=== PATIENT | male | born 1950 | race Caucasian/White ===

== ENCOUNTER → 2020-10-18 14:47 | Outpatient (CLI) | payer MEDICARE, SELFPAY ==
[2020-10-18 14:50] LABS: MANUAL DIFFERENTIAL MANUAL DIFFERENTIAL (MANUAL DIFF)
[2020-10-18 15:17] LABS: Basophils # 0.1 K/mm3 (0-0.2); Basophils % 1.4 % (0.1-2.0); Eosinophils # 0.3 K/mm3 (0.0-0.4); Eosinophils % 3.6 % (0.1-12.0); Hematocrit 46.8 % (42.0-52.0); Hemoglobin 15.5 g/dL (14.1-18.0); Lymphocytes % 23.1 % (10-50); Mean Corpuscular HGB Conc 33.1 g/dL (31.8-35.4); Mean Corpuscular Hemoglobin 34.1 pg (27.0-31.2); Mean Corpuscular Volume 102.9 fl (80-94); Mean Platelet Volume 7.6 fl (7.4-10.4); Monocytes # 0.5 K/mm3 (0.1-1.0); Monocytes % 5.8 % (1.7-9.3); Neutrophils # 5.8 K/mm3 (1.8-7.8); Neutrophils % 66.1 % (37.0-80.0); Platelet Count 309 K/mm3 (142-424); Red Blood Count 4.55 M/mm3 (4.60-6.20); Red Cell Distribution Width 14.3 % (11.5-17.5); White Blood Count 8.8 K/mm3 (4.8-10.8)
[2020-10-18 16:01] LABS: Alanine Aminotransferase 16 U/L (12-78); Albumin Level 4.6 g/dl (3.5-5.0); Albumin/Globulin Ratio 1.5 (1.1-1.8); Alkaline Phosphatase 72 U/L (38-126); Anion Gap 12.7 mEq/L (5-15); Aspartate Amino Transferase 30 U/L (17-59); Bilirubin,Total 0.5 mg/dl (0.2-1.3); Blood Urea Nitrogen 28 mg/dl (9-20); Calcium 9.6 mg/dl (8.4-10.2); Carbon Dioxide 30 mmol/L (22.0-30.0); Chloride 99 mmol/L (98-107); Estimated Glomerular Filt Rate 50 ml/min (>60); GFR (African American) 61 ML/MIN (>60); Glucose 169 mg/dl (74-100); Potassium 3.7 mmoL/L (3.5-5.1); Sodium 138 mmol/L (136-145); Total Protein,Serum 7.6 g/dl (6.3-8.2)
[2020-10-18 16:20] LABS: Eosinophils % 7 % (0-3); Lymphocytes % 17 % (10-50); Macrocytosis 1+; Monocytes % 4 % (2-9); Neutrophils % 72 % (42-76); Platelet Estimate Normal; RBC Morphology Normal; Total Cells Counted 100
[2020-10-18 16:31] LABS: Thyroid Stimulating Hormone 2.12 uIU/mL (0.465-4.68)
[2020-10-20 13:25] LABS: Thyroid Peroxidase Antibodies <9 IU/mL (0-34)
[2020-10-21 10:04] LABS: Thyroid Stimulating Immunoglob <0.10 IU/L (0.00-0.55)
== END ==
PROVIDERS: Visit Provider Otolaryngology
DX: R42 Dizziness and giddiness (principal); E03.9 Hypothyroidism, unspecified; Z79.899 Other long term (current) drug therapy
CPT/HCPCS: 36415; 80053; 84443; 84445; 85007; 85014; 85018; 85048; 85049; 86376

== ENCOUNTER → 2020-10-27 13:10 | Outpatient (CLI) | payer MEDICARE, BC, SELFPAY ==
--- NOTE | 2020-10-27 13:11 | MR_ITS ---
PROCEDURE: MR ANGIO NECK WO CON CLINICAL INDICATION: eval of circulation DIZZINESS, VERTIGO, SYMPTOMS FOR YEARS COMPARISON: No exams were available for comparison TECHNIQUE: 3D oxdb-ah-idviky images are obtained without contrast. FINDINGS: No significant stenotic lesions are evident. No evidence of dissection. The right vertebral artery is hypoplastic with dominant left vertebral artery noted. IMPRESSION: Negative MR angio of the neck Dictated by: Trenton Rose MD 10/28/2020 14:50 Trenton Rose MD in [place] 10/28/2020 14:50
--- NOTE | 2020-10-27 13:11 | MR_ITS ---
PROCEDURE: MR HEAD/BRAIN WO CON CLINICAL INDICATION: eval for ORGANIC SEARCH LEAD abnormality DIZZINESS, VERTIGO, SYMPTOMS FOR YEARS COMPARISON: No exams were available for comparison TECHNIQUE: Routine multiplanar multi echo sequences are performed without gadolinium enhancement. FINDINGS: No midline shift or mass effect. No acute intracranial hemorrhage. No evidence of acute infarction. The cerebellopontine angles and cerebellum and brainstem have an unremarkable appearance. There is mild generalized atrophy. There are few T2 white matter hyperintensities which are nonspecific. The pituitary and optic chiasm and corpus callosum and craniocervical junction have an unremarkable appearance. There is mild mucosal thickening of the ethmoid sinuses and sphenoid sinus. There is a partial empty sella as a normal variant. No mastoid effusion. IMPRESSION: No acute intracranial findings. Mild generalized atrophy. Mild paranasal sinus disease Dictated by: Trenton Rose MD 10/28/2020 14:44 Trenton Rose MD in [place] 10/28/2020 14:44
--- NOTE | 2020-10-27 13:11 | MR_ITS ---
PROCEDURE: MR ANGIO HEAD WO CON CLINICAL INDICATION: eval of circulation DIZZINESS,VERTIGO, SYMPTOMS FOR YEARS COMPARISON: No exams were available for comparison TECHNIQUE: 3D gyva-er-nfmpvu images are without contrast with multi slab reformats. FINDINGS: No aneurysm, arteriovenous malformation, or major branch occlusion apparent. There is persistent origin of the right posterior cerebral artery as a normal variant. IMPRESSION: Negative MRA of the brain. Dictated by: Trenton Rose MD 10/28/2020 14:48 Trenton Rose MD in [place] 10/28/2020 14:48
== END ==
PROVIDERS: PCP Nurse Practitioner Family; Visit Provider Specialist
DX: D75.89 Other specified diseases of blood and blood-forming organs (principal); G47.30 Sleep apnea, unspecified; H40.9 Unspecified glaucoma; I10 Essential (primary) hypertension; R42 Dizziness and giddiness; Z86.39 Personal history of other endocrine, nutritional and metabolic disease; Z94.7 Corneal transplant status
CPT/HCPCS: 70544; 70547; 70551

== ENCOUNTER 2020-10-27 14:35 | Outpatient (RCR) | payer MEDICARE, BC, SELFPAY ==
--- NOTE | 2020-10-27 16:19 | [facility]H.PTOPEV ---
PT Outpatient Evaluation Rehab PT Outpatient Evaluation Start: 10/27/20 14:48 Freq: Status: Active Protocol: Document 10/27/20 16:05 PHORNE (Rec: 10/27/20 16:19 PHORNE [id number]) Electronically Signed By Telly Farias, PT 10/27/20 16:05 Outpatient Therapy Subjective History Subjective History Pt is 70 yowm who presents with c/o chronic vertigo for several years, not positional dependent, with episodes lasting at least 15-30 mins at a time. He reports Vertigo was significantly worse over past 2 mos after a severe bout of strep throat caused him to have his worst symptoms ever. He also reports symptoms apear to worsen with significant salty food intake, I never thought that mattered, but now that you mention it, if I eat potato chips my dizziness is much worse. He also reports chronic tinnitus in B ears which is constant and unchanged. He reports family hx of similar symptoms. He reports his vertigo is best in the am and worse in the afternoon or evening. He has hx of glaucoma with multiple B eye surgeries and chronic vision changes. He reports PMH of anxiety, HL, HTN, and sleep apnea. [place]-halpike testing shows no nystagmus at all and minimal baseline dizziness with all positions. Mild increase in symptoms with Dynamic Visual Acuity test, Head Impulse test, and Saccades testing. Chief Complaint Other Prior Functional Limitations None Current Functional Limitations Driving Symptom Description Constant but Variable Level of pain today (0-10) 0 Balance Eval Nystagmus Nystagmus Presence None Oculomotor Gaze Oculomotor Gaze Nml: Vergence Saccades VOR Cancellation Cover/U
== END 2020-10-27 14:40 | disposition home or self-care (01) ==
LOC: PT 14:35
PROVIDERS: PCP Nurse Practitioner Family; Visit Provider Specialist
DX: R42 Dizziness and giddiness (principal)
CPT/HCPCS: 97163; 97530

== ENCOUNTER → 2020-11-04 09:26 | Outpatient (CLI) | payer MEDICARE, BC, SELFPAY ==
[2020-11-04 11:18] LABS: Vitamin B12 400 pg/mL (239-931)
[2020-11-05 17:25] LABS: Homocyst(e)ine 16.4 umol/L (0.0-17.2)
[2020-11-11 19:08] LABS: Methylmalonic Acid 363 nmol/L (0-378)
== END ==
PROVIDERS: Visit Provider Specialist
DX: D75.89 Other specified diseases of blood and blood-forming organs (principal); G47.30 Sleep apnea, unspecified; H40.9 Unspecified glaucoma; I10 Essential (primary) hypertension; R42 Dizziness and giddiness; Z86.39 Personal history of other endocrine, nutritional and metabolic disease; Z94.7 Corneal transplant status
CPT/HCPCS: 36415; 82131; 82607; 82746; 83090

== ENCOUNTER → 2022-06-05 06:22 | Outpatient (CLI) | payer MEDICARE, BC, SELFPAY ==
[2022-06-05 21:25] LABS: Basophils # 0.1 K/mm3 (0-0.2); Basophils % 1.2 % (0.1-2.0); Eosinophils # 0.3 K/mm3 (0.0-0.4); Eosinophils % 3.9 % (0.1-12.0); Hematocrit 44.2 % (42.0-52.0); Hemoglobin 14.1 g/dL (14.1-18.0); Lymphocytes # 1.9 K/mm3 (0.7-4.5); Lymphocytes % 26.6 % (10-50); Mean Corpuscular HGB Conc 31.9 g/dL (31.8-35.4); Mean Corpuscular Hemoglobin 32.9 pg (27.0-31.2); Mean Corpuscular Volume 103.2 fl (80-94); Mean Platelet Volume 9.3 fl (7.4-10.4); Monocytes # 0.6 K/mm3 (0.1-1.0); Neutrophils # 4.3 K/mm3 (1.8-7.8); Neutrophils % 60.2 % (37.0-80.0); Platelet Count 300 K/mm3 (142-424); Red Blood Count 4.29 M/mm3 (4.60-6.20); Red Cell Distribution Width 14.3 % (11.5-17.5); White Blood Count 7.1 K/mm3 (4.8-10.8)
[2022-06-05 21:41] LABS: Alanine Aminotransferase 16 U/L (12-78); Albumin Level 4.1 g/dl (3.5-5.0); Albumin/Globulin Ratio 1.6 (1.1-1.8); Alkaline Phosphatase 67 U/L (38-126); Anion Gap 10.8 mEq/L (5-15); Aspartate Amino Transferase 41 U/L (17-59); Bilirubin,Total 0.3 mg/dl (0.2-1.3); Blood Urea Nitrogen 27 mg/dl (9-20); Calcium 9.4 mg/dl (8.4-10.2); Carbon Dioxide 26 mmol/L (22.0-30.0); Chloride 106 mmol/L (98-107); Chol/HDL Ratio 3.4 (1-3.5); Cholesterol 142 mg/dl (140-200); Estimated Glomerular Filt Rate 60 ml/min (>60); GFR (African American) 72 ML/MIN (>60); Globulin 2.6 g/dL (1.3-3.2); Glucose 104 mg/dl (74-100); HDL Cholesterol 42 mg/dl (40-60); Potassium 3.8 mmoL/L (3.5-5.1); Sodium 139 mmol/L (136-145); Total Protein,Serum 6.7 g/dl (6.3-8.2); Triglycerides 92 mg/dl (30-150); VLDL Cholesterol 18 mg/dL (0-40)
[2022-06-05 21:42] LABS: Microalbumin/Creatinine Ratio 22.1
[2022-06-05 21:49] LABS: Creatinine,Urine Random 73 mg/dL (Not Estab.)
[2022-06-05 22:05] LABS: Hemoglobin A1C 5.9 % (4.0-6.0)
[2022-06-05 22:12] LABS: Thyroid Stimulating Hormone 0.97 uIU/mL (0.465-4.68)
[2022-06-07 09:01] LABS: Direct LDL Cholesterol 78 mg/dL (100-129)
== END ==
PROVIDERS: PCP Family Medicine; Visit Provider Family Medicine
DX: I10 Essential (primary) hypertension (principal); N28.9 Disorder of kidney and ureter, unspecified; E11.9 Type 2 diabetes mellitus without complications; R42 Dizziness and giddiness; Z79.84 Long term (current) use of oral hypoglycemic drugs
CPT/HCPCS: 80053; 80061; 82043; 82570; 83036; 84443; 85025

== ENCOUNTER → 2022-12-03 23:39 | Outpatient (CLI) | payer MEDICARE, BC, SELFPAY ==
[2022-12-03 17:19] LABS: Creatinine,Urine Random 94 mg/dL (Not Estab.)
[2022-12-03 17:23] LABS: Microalbumin/Creatinine Ratio 102.1
== END ==
PROVIDERS: PCP Family Medicine; Visit Provider Family Medicine
DX: E11.9 Type 2 diabetes mellitus without complications (principal); Z79.84 Long term (current) use of oral hypoglycemic drugs
CPT/HCPCS: 82043; 82570

== ENCOUNTER → 2023-06-03 23:13 | Outpatient (CLI) | payer MEDICARE, BC, SELFPAY ==
[2023-06-03 17:04] LABS: Basophils # 0.1 K/mm3 (0-0.2); Basophils % 0.9 % (0.1-2.0); Eosinophils # 0.2 K/mm3 (0.0-0.4); Eosinophils % 2.8 % (0.1-12.0); Hemoglobin 15.5 g/dL (14.1-18.0); Lymphocytes % 26.9 % (10-50); Mean Corpuscular HGB Conc 32.9 g/dL (31.8-35.4); Mean Corpuscular Hemoglobin 32.9 pg (27.0-31.2); Mean Corpuscular Volume 99.9 fl (80-94); Mean Platelet Volume 9.3 fl (7.4-10.4); Monocytes # 0.7 K/mm3 (0.1-1.0); Neutrophils # 4.5 K/mm3 (1.8-7.8); Neutrophils % 60.4 % (37.0-80.0); Platelet Count 275 K/mm3 (142-424); Red Blood Count 4.71 M/mm3 (4.60-6.20); Red Cell Distribution Width 14.1 % (11.5-17.5); White Blood Count 7.4 K/mm3 (4.8-10.8)
[2023-06-03 17:05] LABS: Alanine Aminotransferase 18 U/L (12-78); Albumin Level 4.4 g/dl (3.5-5.0); Albumin/Globulin Ratio 1.4 (1.1-1.8); Alkaline Phosphatase 67 U/L (38-126); Anion Gap 15.8 mEq/L (5-15); Aspartate Amino Transferase 31 U/L (17-59); Bilirubin,Total 0.5 mg/dl (0.2-1.3); Blood Urea Nitrogen 28 mg/dl (9-20); Calcium 9.6 mg/dl (8.4-10.2); Carbon Dioxide 25 mmol/L (22.0-30.0); Chloride 103 mmol/L (98-107); Chol/HDL Ratio 3.5 (1-3.5); Cholesterol 150 mg/dl (140-200); Estimated Glomerular Filt Rate 50 ml/min (>60); GFR (African American) 61 ML/MIN (>60); Globulin 3.2 g/dL (1.3-3.2); Glucose 104 mg/dl (74-100); HDL Cholesterol 43 mg/dl (40-60); Potassium 3.8 mmoL/L (3.5-5.1); Sodium 140 mmol/L (136-145); Total Protein,Serum 7.6 g/dl (6.3-8.2); Triglycerides 131 mg/dl (30-150); VLDL Cholesterol 26 mg/dL (0-40)
[2023-06-03 17:16] LABS: Direct LDL Cholesterol 84.51 mg/dL (100-129)
[2023-06-03 17:26] LABS: Hemoglobin A1C 6.1 % (4.0-6.0)
[2023-06-03 17:34] LABS: Thyroid Stimulating Hormone 1.69 uIU/mL (0.465-4.68)
== END ==
PROVIDERS: PCP Family Medicine; Visit Provider Family Medicine
DX: I10 Essential (primary) hypertension (principal); E03.9 Hypothyroidism, unspecified; E11.9 Type 2 diabetes mellitus without complications; E78.5 Hyperlipidemia, unspecified; Z00.00 Encounter for general adult medical examination without abnormal findings; Z79.84 Long term (current) use of oral hypoglycemic drugs
CPT/HCPCS: 80053; 80061; 83036; 84443; 85025

== ENCOUNTER 2024-02-26 10:20 | Outpatient (CLI) | payer MEDICARE, SELFPAY ==
[2024-02-26 16:36] LABS: Hemoglobin A1C 6.2 % (4.0-6.0)
[2024-02-26 16:40] LABS: Chloride 104 mmol/L (98-107); Sodium 138 mmol/L (136-145)
[2024-02-26 16:41] LABS: Potassium 3.7 mmoL/L (3.5-5.1)
[2024-02-26 16:44] LABS: Anion Gap 12.7 mEq/L (5-15); Blood Urea Nitrogen 33 mg/dl (9-20); Calcium 10.1 mg/dl (8.4-10.2); Carbon Dioxide 25 mmol/L (22.0-30.0); Estimated Glomerular Filt Rate 54 ml/min (>60); GFR (African American) 66 ML/MIN (>60); Glucose 109 mg/dl (74-100)
== END 2024-02-26 23:59 | disposition home or self-care (01) ==
LOC: LAB.DROPOF 02-27 10:21
PROVIDERS: PCP Family Medicine; Visit Provider Family Medicine
DX: E11.9 Type 2 diabetes mellitus without complications (principal); Z79.899 Other long term (current) drug therapy
CPT/HCPCS: 80048; 83036

== ENCOUNTER 2024-12-29 09:02 | Outpatient (CLI) | payer MEDICARE, BC, SELFPAY ==
[2024-12-29 17:37] LABS: Basophils # 0.1 K/mm3 (0-0.2); Eosinophils # 0.1 K/mm3 (0.0-0.4); Eosinophils % 1.9 % (0.1-12.0); Hemoglobin 14.5 g/dL (14.1-18.0); Lymphocytes # 1.6 K/mm3 (0.7-4.5); Lymphocytes % 23.2 % (10-50); Mean Corpuscular Hemoglobin 32.3 pg (27.0-31.2); Mean Platelet Volume 10.3 fl (7.4-10.4); Monocytes # 0.7 K/mm3 (0.1-1.0); Monocytes % 10.2 % (1.7-9.3); Neutrophils # 4.2 K/mm3 (1.8-7.8); Neutrophils % 63.3 % (37.0-80.0); Platelet Count 259 K/mm3 (142-424); Red Blood Count 4.49 M/mm3 (4.60-6.20); Red Cell Distribution Width 13.8 % (11.5-17.5); White Blood Count 6.7 K/mm3 (4.8-10.8)
[2024-12-29 18:10] LABS: Alanine Aminotransferase 16 U/L (12-78); Albumin Level 4.6 g/dl (3.5-5.0); Albumin/Globulin Ratio 1.8 (1.1-1.8); Alkaline Phosphatase 60 U/L (38-126); Anion Gap 12.1 mEq/L (5-15); Aspartate Amino Transferase 26 U/L (17-59); Bilirubin,Total 0.6 mg/dl (0.2-1.3); Blood Urea Nitrogen 29 mg/dl (9-20); Carbon Dioxide 26 mmol/L (22.0-30.0); Chloride 105 mmol/L (98-107); Chol/HDL Ratio 3.3 (1-3.5); Cholesterol 154 mg/dl (140-200); Estimated Glomerular Filt Rate 54 ml/min (>60); GFR (African American) 66 ML/MIN (>60); Globulin 2.6 g/dL (1.3-3.2); Glucose 83 mg/dl (74-100); HDL Cholesterol 46 mg/dl (40-60); Potassium 4.1 mmoL/L (3.5-5.1); Sodium 139 mmol/L (136-145); Total Protein,Serum 7.2 g/dl (6.3-8.2); Triglycerides 68 mg/dl (30-150); VLDL Cholesterol 14 mg/dL (0-40)
[2024-12-29 18:33] LABS: Hemoglobin A1C 5.9 % (4.0-6.0)
[2024-12-29 18:41] LABS: Prostate Specific Ag Screen 0.6 ng/ml (0.0-4.0); Thyroid Stimulating Hormone 1.26 uIU/mL (0.465-4.68)
[2024-12-29 19:55] LABS: HIV Combo NEGATIVE (Negative)
[2024-12-29 20:04] LABS: Hepatitis C Ab Qual. W/ RFX NEGATIVE (Negative)
== END 2024-12-29 23:59 | disposition home or self-care (01) ==
LOC: LAB.DROPOF 12-31 09:11
PROVIDERS: PCP Family Medicine; Visit Provider Family Medicine
DX: E78.5 Hyperlipidemia, unspecified (principal); I10 Essential (primary) hypertension; E11.9 Type 2 diabetes mellitus without complications; Z11.59 Encounter for screening for other viral diseases; Z12.5 Encounter for screening for malignant neoplasm of prostate
CPT/HCPCS: 80053; 80061; 83036; 84443; 85025; 86803; 87389; G0103

== ENCOUNTER 2025-09-13 11:08 | Outpatient (CLI) | payer MEDICARE, BC, SELFPAY ==
--- NOTE | 2025-09-13 11:00 | CT_ITS ---
FINAL REPORT TECHNIQUE: Thin section axial images were obtained from the lung apices to the upper abdomen by computed tomography. Reformatted images were obtained and reviewed. This study was performed with techniques to keep radiation doses al low as reasonably achievable (ALARA). Individualized dose reduction techniques using automated exposure control or adjustment of mA and/or kV according to the patient's size were employed. CLINICAL HISTORY: lung cancer screening patient is a former smoker. he quit smoking 3 years ago. he smoked for 20 years and smoked 1 cigar per day. patient stated that he still occasionally takes a puff of a cigar but he has cut back a lot the past few years. 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 COMPARISON: None FINDINGS: CHEST CT LOW DOSE 75-year-old male, former smoker who quit 3 years ago, CTDI vol (mGy): 2.90 DLP (mGy-cm): 106.29 There is no axillary adenopathy. There is no mediastinal or hilar mass or adenopathy. The heart is normal in size. There are moderate coronary artery calcifications in the proximal LAD. There is no pericardial or pleural effusion. Lung window images demonstrate there is a 4 mm nodule in the anterior right upper lobe. There is a second nodule in the peripheral right middle lobe, best seen on image #6 of series 3. Limited images of the upper abdomen demonstrate an 11 mm nodule in the right adrenal gland that may represent an adenoma. IMPRESSION: Lung-RADS category 2. Recommend 12 month follow up low dose chest CT. Reviewed, Interpreted and Dictated by Los Bragg MD Transcribed by Clementine Martinez Authenticated and . [facility]
== END 2025-09-13 23:59 | disposition home or self-care (01) ==
LOC: RAD 11:09
PROVIDERS: PCP Family Medicine; Visit Provider Family Medicine
DX: Z12.2 Encounter for screening for malignant neoplasm of respiratory organs (principal); F17.290 Nicotine dependence, other tobacco product, uncomplicated; R91.8 Other nonspecific abnormal finding of lung field; I25.10 Atherosclerotic heart disease of native coronary artery without angina pectoris; E27.9 Disorder of adrenal gland, unspecified; Z85.828 Personal history of other malignant neoplasm of skin
CPT/HCPCS: 71271